=== PATIENT | male | born 1975 | race Caucasian/White ===

== ENCOUNTER 2016-12-09 15:23 | Emergency (ER) | payer SELFPAY ==
[2016-12-09] MEDS ORDERED: Nitroglycerin 0.4 MG TAB (25 Tab Bottle) ONE (15:42)
--- NOTE | 2016-12-09 15:55 | RAD ---
PA AND LATERAL VIEWS OF CHEST: Date: 12/09/16 HISTORY: Chest pain. Cough. Wheezing. FINDINGS: Comparison made with exam of 11/25/12. The heart size is normal. The lungs are well expanded without focal areas of consolidation, pneumoth orax, or pleural effusions. IMPRESSION: No radiographic evidence of acute cardiopulmonary process. POS: [facility]
[2016-12-09 15:57] LABS: #Basophils 0.1 thou/uL (0.0-0.2); #Eosinphils 0.4 thou/uL (0.0-0.7); #Lymphocytes 2.9 thou/uL (1.20-3.40); #Neutrophils 6.1 thou/uL (1.40-6.50); %Eosinophils 4.2 % (0.0-10.0); %Lymphocytes 27.2 % (21.0-51.0); %Monocytes 9.3 % (0.0-10.0); Hematocrit 48.2 % (42.0-52.0); Red Blood Cell (RBC) Count 5.12 mill/uL (4.70-6.10); White Blood Cell (WBC) Count 10.5 thou/uL (4.8-10.8)
[2016-12-09 16:16] LABS: ALT (SGPT) 13 U/L (8-55); AST (SGOT) 14 U/L (5-34); Alkaline Phosphatase 109 U/L (40-150); Anion Gap 12 mmol/L (10-20); BUN (Urea Nitrogen) 18 mg/dL (8.9-20.6); Bilirubin, Total 0.2 mg/dL (0.2-1.2); CK (CPK) 134 U/L (30-200); Calc. Creatinine Clearance 0 mL/min (70-130); Calcium 9.1 mg/dL (7.8-10.44); Carbon Dioxide 26 mmol/L (22-29); Chloride 107 mmol/L (98-107); Estimated GFR-MDRD 64; Lipase 40 U/L (8-78); Protein, Total 6.8 g/dL (6.0-8.3)
[2016-12-09 16:21] LABS: Troponin I Less than 0.010 ng/mL (< 0.028)
[2016-12-09 17:19] LABS: Bilirubin Negative (Negative); Blood, Urine Negative (Negative); Glucose, Urine (Dipstick) Negative (Negative); Ketone, Urine Negative (Negative); Nitrite Negative (Negative); Protein, Urine (Dipstick) Negative (Neg-Trace); Urobilinogen 0.2 mg/dL (0.2-1.0)
[2016-12-09 19:44] LABS: Troponin I Less than 0.010 ng/mL (< 0.028)
== END 2016-12-09 20:02 | disposition home or self-care (01) ==
LOC: ERS 15:23
DX: R07.9 Chest pain, unspecified (principal); F17.210 Nicotine dependence, cigarettes, uncomplicated
CPT/HCPCS: 36415; 71020; 80053; 81003; 82550; 82553; 83690; 84484; 85025; 85379; 93005; 94760; 96360

== ENCOUNTER 2017-10-08 14:13 | Emergency (ER) | payer SELFPAY ==
[2017-10-08] MEDS ORDERED: HYDROcodone/Acetaminophen 10/325 mg Tablet ONE (14:38)
[2017-10-08] MEDS ORDERED: Lidocaine 1% (PF) 30 ML VIAL ONE (14:39)
[2017-10-08] MEDS ORDERED: Bupivacaine 0.5% 10 ML VIAL ONE (14:39)
[2017-10-08] MEDS ORDERED: Adacel (T-DAP) 0.5 ML VIAL ONE (14:39)
--- NOTE | 2017-10-08 15:30 | RAD ---
LEFT FINGER THREE VIEW: History: Injury. Comparison: None FINDINGS: There is mildly comminuted fracture through the tuft of the distal phalanx fourth finger. Adjacent so ft tissue swelling. IMPRESSION: Mildly comminuted tuft fracture distal phalanx of the fourth finger. POS: [facility]
[2017-10-08] MEDS ORDERED: Bacitracin Zinc 1 Packet ONE (15:56)
== END 2017-10-08 16:29 | disposition home or self-care (01) ==
LOC: ERS 14:13
DX: S62.635B Displaced fracture of distal phalanx of left ring finger, initial encounter for open fracture (principal); S61.215A Laceration without foreign body of left ring finger without damage to nail, initial encounter; F17.210 Nicotine dependence, cigarettes, uncomplicated; W20.8XXA Other cause of strike by thrown, projected or falling object, initial encounter
CPT/HCPCS: 12001; 90471; 90715; J2001; J3490; Q4049

== ENCOUNTER 2017-12-14 14:39 | Outpatient (CLI) | payer BC ==
--- NOTE | 2017-12-14 16:48 | RAD ---
THORACIC SPINE TWO VIEWS: HISTORY: Pain between shoulder blades. COMPARISON: None. FINDINGS: There appear to be 12 thoracic type vertebral bodies. Vertebral body height is maintained. No fract ure. No significant loss of disk space height or malalignment. IMPRESSION: Unremarkable two views thoracic spine. POS: [facility]
--- NOTE | 2017-12-14 16:50 | RAD ---
CERVICAL SPINE FOUR VIEWS: HISTORY: Neck pain. History of fracture. COMPARISON: None. FINDINGS: Limited evaluation of the odontoid process and the basal skull on the open-mouth view. The lateral m asses of C1 and C2 articulate appropriately. There is extensive facet hypertrophy at the right aspect of the thoracic spine, throughout the visual ized cervical spine, from C2 through C7. The Swimmer's view is somewhat limited. There is an anteri or fusion plate with a transvertebral body screw at C6-C7. No perihardware lucency. There is a disk prosthesis at the C6-C7 level. The disk prosthesis appears to have migrated somewhat anteriorly. T here is fusion of the disk space. Vertebral body height is maintained. No fracture or malalignment. IMPRESSION: Cervical fusion changes, as described above. The disk prosthesis appears to be slightly anterior to the adjacent vertebral bodies. POS: [facility]
== END 2017-12-14 14:40 | disposition home or self-care (01) ==
LOC: BICRAD 14:39
PROVIDERS: ATTEND Family Medicine
DX: M54.13 Radiculopathy, cervicothoracic region (principal); Z98.1 Arthrodesis status
CPT/HCPCS: 72040; 72072

== ENCOUNTER 2017-12-22 14:08 | Outpatient (CLI) | payer BC ==
--- NOTE | 2017-12-22 16:05 | RAD ---
TWO VIEW CHEST: HISTORY: Chest pain. COMPARISON: 12/09/2016 FINDINGS: Interstitial markings are increased in the mid and lower lung [place] bilaterally. No infiltrate or e ffusion. Heart and mediastinum are unremarkable. IMPRESSION: Mild interstitial prominence, which may be chronic. No confluent infiltrate identified. POS: [facility]
== END 2017-12-22 14:09 | disposition home or self-care (01) ==
LOC: BICRAD 14:08
PROVIDERS: ATTEND Family Medicine
DX: R07.9 Chest pain, unspecified (principal)
CPT/HCPCS: 71046

== ENCOUNTER 2019-09-27 00:37 | Emergency (ER) | payer BC, SELFPAY ==
[2019-09-27] MEDS ORDERED: predniSONE 20 MG TAB ONE (00:55)
[2019-09-27] MEDS ORDERED: Ibuprofen 800 MG TAB ONE (00:55)
== END 2019-09-27 01:08 | disposition home or self-care (01) ==
LOC: ERS 00:37
DX: G56.31 Lesion of radial nerve, right upper limb (principal); F17.210 Nicotine dependence, cigarettes, uncomplicated
CPT/HCPCS: 99283; J7512

== ENCOUNTER 2022-04-25 18:46 | Emergency (ER) | payer SELFPAY ==
[2022-04-25] MEDS ORDERED: Aspirin Chewable 81 MG TAB ONE (19:01)
[2022-04-25 19:19] LABS: #Eosinphils 0.3 thou/uL (0.0-0.7); #Monocytes 0.9 thou/uL (0.11-0.59); #Neutrophils 5.9 thou/uL (1.40-6.50); %Basophils 0.3 % (0.0-1.0); %Eosinophils 3.8 % (0.0-10.0); %Lymphocytes 21.7 % (21.0-51.0); %Neutrophils 64.3 % (42.0-75.0); Hemoglobin 12.9 g/dL (14.0-18.0); Mean Corpuscular HGB CONC 32.9 g/dL (32.0-36.0); Mean Corpuscular Hemoglobin 29.6 pg (27.0-31.0); Mean Platelet Volume 7.7 fL (7.4-10.4); Platelet Count 280 10x3/uL (130-400); RBC Distribution Width 13.2 % (11.5-14.5); Red Blood Cell (RBC) Count 4.36 mill/uL (4.70-6.10); White Blood Cell (WBC) Count 9.2 10x3/uL (4.8-10.8)
[2022-04-25 19:43] LABS: ALT (SGPT) 110 U/L (8-55); AST (SGOT) 95 U/L (5-34); Albumin 3.8 g/dL (3.5-5.0); Alkaline Phosphatase 125 U/L (40-110); Anion Gap 10 mmol/L (10-20); BUN (Urea Nitrogen) 26 mg/dL (8.9-20.6); Bilirubin, Total 0.3 mg/dL (0.2-1.2); Calc. Creatinine Clearance 0 mL/min (70-130); Carbon Dioxide 25 mmol/L (22-29); Chloride 106 mmol/L (98-107); Estimated GFR 56; Globulin 3.3 g/dL (2.4-3.5); Glucose 91 mg/dL (70-105); Potassium 5.1 mmol/L (3.5-5.1); Protein, Total 7.1 g/dL (6.0-8.3); Sodium 136 mmol/L (136-145)
== END 2022-04-25 20:46 | disposition home or self-care (01) ==
LOC: ERS 18:46
DX: R07.89 Other chest pain (principal); I10 Essential (primary) hypertension; E05.90 Thyrotoxicosis, unspecified without thyrotoxic crisis or storm; F17.210 Nicotine dependence, cigarettes, uncomplicated; Z79.899 Other long term (current) drug therapy
CPT/HCPCS: 71045; 80053; 84484; 85025; 93005

== ENCOUNTER 2023-01-26 11:11 | Emergency (ER) | payer SELFPAY ==
[2023-01-26 13:11] LABS: Bacteria/HPF None Seen HPF (None Seen); Bilirubin Negative (Negative); Blood, Urine Negative (Negative); Clarity Clear (Clear); Glucose, Urine (Dipstick) Normal (Negative); Ketone, Urine Negative (Negative); Leukocyte 25 Leu/uL (Negative); Nitrite Negative (Negative); Protein, Urine (Dipstick) Negative (Neg-Trace); RBC/HPF 0-3 HPF (0-3); Specific Gravity, Urine 1.023 (1.002-1.036); Squamous Epithelial None Seen HPF (0-3); Urobilinogen Normal mg/dL (Less than 2)
[2023-01-26] MEDS ORDERED: Lidocaine 1% MPF 2 ML VIAL ONE (13:40)
[2023-01-26] MEDS ORDERED: cefTRIAXone (ROCEPHIN) 500 MG VIAL ONE (13:41)
[2023-01-27 11:33] LABS: Chlam.trachomatis by PCR,Urine Not Detected (NotDetected); GC N.gonorrhoeae PCR,UrineVOID Not Detected (NotDetected)
== END 2023-01-26 13:59 | disposition home or self-care (01) ==
LOC: ERS 11:11
DX: N45.1 Epididymitis (principal); N43.3 Hydrocele, unspecified; I10 Essential (primary) hypertension; F17.290 Nicotine dependence, other tobacco product, uncomplicated; E05.90 Thyrotoxicosis, unspecified without thyrotoxic crisis or storm
CPT/HCPCS: 76870; 81001; 87086; 87491; 87591; 93976; 96372; J0696